=== PATIENT | female | born 2005 | race Caucasian/White ===

== ENCOUNTER 2024-06-02 13:05 | Inpatient (IN) | payer MEDICAID, SELFPAY ==
[2024-06-02 13:18] VITALS: RESP 16; BMI 24.0
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
--- NOTE | 2024-06-02 14:03 | PC.NURSE ---
Report given to Deirdre CESAR in Pod. Preparing to transfer from ED 16 [address] to Pod. Security notified.
[2024-06-02 14:15] VITALS: RESP 16
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
--- NOTE | 2024-06-02 14:26 | PC.NURSE ---
pt willingly provided urine and blood work, calm and cooperative
[2024-06-02 14:30] LABS: MANUAL DIFF FLAG NO
[2024-06-02 14:35] LABS: Basophils Absolute Auto 0.1 X10*3/uL (0.0-0.2); Basophils Percent Auto 0.4 % (0-2); Hematocrit 41.3 % (37.0-47.0); Hemoglobin 14.1 g/dl (12.0-16.0); Imm Gran Abs Auto 0.05 X10*3/uL (0.00-0.03); Imm Gran Pct Auto 0.4 % (0.0-0.4); Lymphocytes Absolute Auto 1.4 X10*3/uL (1.2-4.9); Lymphocytes Percent Auto 10.1 % (20-40); Mean Corpuscular HGB Conc 34.1 g/dl (31.0-35.0); Mean Corpuscular Hemoglobin 30.2 pg (27.0-33.0); Mean Corpuscular Volume 88.4 fL (80.0-98.0); Mean Platelet Volume 9.3 fL (9.4-12.3); Monocytes Absolute Auto 0.7 X10*3/uL (0.1-1.2); Monocytes Percent Auto 5.4 % (2-11); Neutrophils Absolute Auto 11.5 x10*3/uL (2.0-8.3); Neutrophils Percent Auto 83.7 % (45-73); Platelet Count 387 X10*3/uL (160-400); Red Blood Count 4.67 X10*6/uL (4.20-5.50); White Blood Count 13.8 X10*3/uL (4.8-10.8)
[2024-06-02 14:43] LABS: Appearance Urine Cloudy; Color Urine Yellow; Glucose Urine UA Negative (Negative); Leukocyte Esterase Urine Trace (Negative); Nitrite Urine Negative (Negative); Specific Gravity - Urine 1.025 (1.005-1.025); UMIC TRIGGER UACC YES; Urine Blood Negative (Negative); Urine Ketones 15 mg/dL (Negative); Urine Protein 30 (1+) mg/dL (Neg-Trace)
[2024-06-02 14:45] LABS: Amphetamine Screen Urine Not Detected (Not Detect); Barbiturates, Urine Not Detected (Not Detect); Benzodiazepines Screen Urine Not Detected (Not Detect); Buprenorphine Scr Not Detected (Not Detect); Cannabinoid Screen Urine POSITIVE (Not Detect); Cocaine Screen Urine Not Detected (Not Detect); Fentanyl, urine Not Detected (Not Detect); Methadone Screen, Urine Not Detected (Not Detect); Opiate Screen Urine Not Detected (Not Detect); Oxycodone Screen Urine Not Detected (Not Detect); Phencyclidine Screen Urine Not Detected (Not Detect)
[2024-06-02 14:59] LABS: Alanine Aminotransferase 16 U/L (0-31); Anion Gap 15 (12-20); Aspartate Amino Transferase 21 U/L (5-31); Bilirubin Total 0.6 mg/dL (0.0-1.0); Blood Urea Nitrogen 12 mg/dL (9-16); Carbon Dioxide 22 mmol/L (22-29); Chloride 107 mmol/L (96-108); Creatinine Clr Calc Pharmacy 95.6; Estimated Glomerular Filt Rate > 60; Ethanol < 10 mg/dL; Glucose Random 92 mg/dL (60-115); Potassium 3.9 mmol/L (3.3-5.1); Sodium 140 mmol/L (135-145); Total Protein 8.1 g/dL (6.5-8.0)
[2024-06-02 15:03] LABS: Bacteria Urine 2+ (None Seen); RBC Urine 0-2 /HPF (0-2); WBC Urine 0-5 /HPF (0-5)
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
[2024-06-02 15:08] LABS: Alkaline Phosphatase 83 U/L (39-117)
--- NOTE | 2024-06-02 15:20 | PC.NURSE ---
Pt requesting only female staff
[2024-06-02 15:35] LABS: UPreg QC Valid YES; Urine Pregnancy NEGATIVE (NEGATIVE)
[2024-06-02 15:41] LABS: Magnesium 2.1 mg/dL (1.6-2.6)
[2024-06-02] MEDS: Acetaminophen 325 MG TABLET 650 MG PO (15:54)
[2024-06-02] MEDS: LORazepam 1 MG TABLET PO (17:03)
--- NOTE | 2024-06-02 17:41 | PC.NURSE ---
pt sleeping, RR even and unlabored, no apparent distress noted
[2024-06-02 18:35] VITALS: PULSE 82; RESP 16; O2SAT 97
--- NOTE | 2024-06-03 | ECG_ITS ---
Test Reason : ro qc Blood Pressure : */* mmHG Vent. Rate : 98 BPM Atrial Rate : 98 BPM P-R Int : 126 ms QRS Dur : 74 ms QT Int : 342 ms P-R-T Axes : 55 11 51 degrees QTcB Int : 436 ms Normal sinus rhythm Possible Left atrial enlargement Borderline ECG No previous ECGs available Referred By: Jose Mena Electronically Signed By: Driss Escobar
[2024-06-03 06:31] VITALS: BP 117/62; PULSE 97; RESP 16; TEMP 36.6; O2SAT 99
--- NOTE | 2024-06-03 07:33 | PC.NURSE ---
ASSUMED CARE OF PT AT 0645. PT SHOWERING AT THIS TIME. NO ACUTE CONCERNS. CONTINUE PLAN OF CARE FOR [facility]
--- NOTE | 2024-06-03 13:23 | PC.NURSE ---
BELONGINGS GIVEN TO STAFF FOR ADMISSION M3
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
[2024-06-03 13:35] VITALS: BP 152/84; PULSE 96; RESP 16; TEMP 36.4; O2SAT 96
[2024-06-03] MEDS: risperiDONE 0.5 MG TABLET PO (15:41)
[2024-06-03] MEDS: hydrOXYzine HCL 25 MG TABLET PO (15:41)
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
[2024-06-03 20:00] VITALS: BP 122/66; PULSE 108; RESP 16; TEMP 36; O2SAT 98
[2024-06-03] MEDS: risperiDONE 1 MG TABLET PO (20:57)
[2024-06-03] MEDS: LORazepam 0.5 MG TABLET PO (20:57)
[2024-06-04 07:35] VITALS: BP 130/71; PULSE 112; RESP 16; TEMP 36.9; O2SAT 98
[2024-06-04 08:25] LABS: Estimated Average Glucose 103 mg/dL; Hemoglobin A1C 123.3929 umol/L; Hemoglobin A1c % 5.2 % (<6.0)
[2024-06-04 08:29] LABS: Alanine Aminotransferase 15 U/L (0-31); Albumin Level 4.6 g/dL (3.5-5.0); Alkaline Phosphatase 75 U/L (39-117); Anion Gap 12 (12-20); Aspartate Amino Transferase 21 U/L (5-31); Bilirubin Total 0.9 mg/dL (0.0-1.0); Blood Urea Nitrogen 11 mg/dL (9-16); Calcium 9.6 mg/dL (8.4-10.2); Carbon Dioxide 23 mmol/L (22-29); Chloride 107 mmol/L (96-108); Cholesterol 126 mg/dL (<200); Creatinine Clr Calc Pharmacy 87.2; Estimated Glomerular Filt Rate > 60; Glucose Random 97 mg/dL (60-115); HDL Cholesterol 50 mg/dL (>40); LDL Cholesterol Calculated 66 mg/dL (<100); Potassium 3.7 mmol/L (3.3-5.1); Sodium 138 mmol/L (135-145); Total Protein 7.4 g/dL (6.5-8.0); Triglycerides 54 mg/dL (<150)
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
[2024-06-04] MEDS: hydrOXYzine HCL 25 MG TABLET PO (16:42)
[2024-06-04] MEDS: risperiDONE 0.5 MG TABLET PO (16:42)
[2024-06-04 19:40] VITALS: BP 102/56; PULSE 80; RESP 16; TEMP 36.5; O2SAT 96
[2024-06-04] MEDS: risperiDONE 1 MG TABLET PO (20:42)
[2024-06-04] MEDS: LORazepam 0.5 MG TABLET PO (20:42)
[2024-06-05 07:39] VITALS: BP 123/63; PULSE 126; RESP 16; TEMP 36.9; O2SAT 96
[2024-06-05] MEDS: risperiDONE 0.5 MG TABLET PO ×2 (10:52→22:43)
[2024-06-05] MEDS: hydrOXYzine HCL 25 MG TABLET PO (10:52)
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
[2024-06-05 19:40] VITALS: BP 133/61; PULSE 111; RESP 14; TEMP 36.8; O2SAT 98
[2024-06-05] MEDS: risperiDONE 2 MG TABLET PO (22:43)
[2024-06-05] MEDS: LORazepam 0.5 MG TABLET PO (22:43)
[2024-06-06 07:15] VITALS: BP 116/62; PULSE 101; RESP 18; TEMP 37.1; O2SAT 97
[2024-06-06] MEDS: risperiDONE 0.5 MG TABLET PO (09:16)
[2024-06-06] MEDS: hydrOXYzine HCL 25 MG TABLET PO ×2 (09:16→20:28)
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
[2024-06-06 20:00] VITALS: BP 110/58; PULSE 93; RESP 16; TEMP 36.6; O2SAT 96
[2024-06-06] MEDS: traZODone HCL 50 MG TABLET PO ×2 (20:28→21:48)
[2024-06-06] MEDS: risperiDONE 2 MG TABLET PO (20:28)
[2024-06-06] MEDS: LORazepam 0.5 MG TABLET PO (20:28)
[2024-06-07 08:17] VITALS: BP 116/03; PULSE 93; RESP 14; TEMP 36.9; O2SAT 98
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
[2024-06-07 20:00] VITALS: BP 121/67; PULSE 98; RESP 16; TEMP 36.5; O2SAT 97
[2024-06-07] MEDS: hydrOXYzine HCL 25 MG TABLET PO (20:31)
[2024-06-07] MEDS: risperiDONE 2 MG TABLET PO (20:31)
[2024-06-07] MEDS: LORazepam 0.5 MG TABLET PO (20:33)
[2024-06-07] MEDS: traZODone HCL 50 MG TABLET PO ×2 (20:35→21:08)
[2024-06-08 08:46] VITALS: BP 104/50; PULSE 82; RESP 16; TEMP 36.6; O2SAT 97
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
[2024-06-08 19:45] VITALS: BP 113/59; PULSE 93; RESP 18; TEMP 36.9
[2024-06-08] MEDS: LORazepam 0.5 MG TABLET PO (20:05)
[2024-06-08] MEDS: traZODone HCL 100 MG TABLET PO (20:05)
[2024-06-08] MEDS: risperiDONE 3 MG TABLET PO (20:05)
[2024-06-09 07:40] VITALS: BP 111/56; PULSE 82; RESP 14; TEMP 36.9; O2SAT 97
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
[2024-06-09] MEDS: Acetaminophen 325 MG TABLET 650 MG PO (15:35)
[2024-06-09] MEDS: Ibuprofen 600 MG TABLET PO (18:49)
[2024-06-09 20:03] VITALS: BP 125/67; PULSE 116; RESP 16; TEMP 36.8; O2SAT 98
[2024-06-09] MEDS: risperiDONE 3 MG TABLET PO (20:37)
[2024-06-09] MEDS: LORazepam 0.5 MG TABLET PO (20:37)
[2024-06-09] MEDS: traZODone HCL 100 MG TABLET PO (20:37)
[2024-06-10 07:05] VITALS: BP 110/61; PULSE 99; RESP 16; TEMP 36.6; O2SAT 97
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
[2024-06-10] MEDS: hydrOXYzine HCL 25 MG TABLET PO (17:26)
[2024-06-10] MEDS: risperiDONE 0.5 MG TABLET PO (17:27)
[2024-06-10] MEDS: Ibuprofen 600 MG TABLET PO (18:35)
[2024-06-10 20:00] VITALS: BP 149/74; PULSE 104; RESP 18; TEMP 36.6; O2SAT 97
[2024-06-10] MEDS: risperiDONE 2 MG TABLET 4 MG PO (20:26)
[2024-06-10] MEDS: LORazepam 0.5 MG TABLET PO (20:27)
[2024-06-10] MEDS: traZODone HCL 100 MG TABLET PO (20:27)
[2024-06-10] MEDS: Magnesium Hydrox/Alum Hydrox 30 ML ORAL.SUSP PO (20:32)
[2024-06-11 07:44] VITALS: BP 93/48; PULSE 85; RESP 14; TEMP 36.9; O2SAT 96
[2024-06-11] MEDS: risperiDONE 0.5 MG TABLET PO ×2 (08:40→12:50)
[2024-06-11] MEDS: Ibuprofen 600 MG TABLET PO (08:40)
[2024-06-11] MEDS: hydrOXYzine HCL 25 MG TABLET PO ×3 (08:40→21:23)
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
[2024-06-11] MEDS: LORazepam 1 MG TABLET PO (13:59)
[2024-06-11 20:00] VITALS: BP 116/60; PULSE 90; RESP 16; TEMP 37.1; O2SAT 96
[2024-06-11] MEDS: risperiDONE 2 MG TABLET 4 MG PO (21:22)
[2024-06-11] MEDS: LORazepam 0.5 MG TABLET PO (21:22)
[2024-06-11] MEDS: traZODone HCL 100 MG TABLET PO (21:22)
[2024-06-12 07:00] VITALS: BMI 21.2
[2024-06-12 07:43] VITALS: BP 86/48; PULSE 76; RESP 16; TEMP 36.9; O2SAT 97
[2024-06-12] MEDS: LORazepam 0.5 MG TABLET PO ×2 (08:07→21:39)
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
[2024-06-12 10:07] VITALS: BMI 21.2
[2024-06-12] MEDS: OLANZapine 5 MG TABLET PO ×3 (10:10→21:39)
[2024-06-12] MEDS: hydrOXYzine HCL 25 MG TABLET PO (16:47)
[2024-06-12] MEDS: traZODone HCL 100 MG TABLET PO (21:39)
[2024-06-12] MEDS: risperiDONE 3 MG TABLET PO (21:39)
[2024-06-13 07:45] VITALS: BP 104/62; PULSE 87; RESP 16; TEMP 36.8; O2SAT 96
[2024-06-13] MEDS: OLANZapine 5 MG TABLET PO ×3 (08:23→20:24)
[2024-06-13] MEDS: LORazepam 0.5 MG TABLET PO ×2 (08:23→20:24)
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
--- NOTE | 2024-06-13 14:16 | PC.NURSE ---
Bindu requested medication for psychosis, stating that she was hearing narration and argueing in her head and that she was feeling agitated. Provider notified, prn zyprexa administered
[2024-06-13 19:31] VITALS: BP 92/52; PULSE 68; RESP 14; TEMP 36.5; O2SAT 96
[2024-06-13] MEDS: traZODone HCL 100 MG TABLET PO (20:24)
[2024-06-14] MEDS: Ibuprofen 600 MG TABLET PO ×2 (07:05→15:12)
[2024-06-14 08:00] VITALS: BP 133/62; PULSE 98; RESP 14; TEMP 36.8; O2SAT 98
[2024-06-14] MEDS: LORazepam 0.5 MG TABLET PO ×2 (08:53→21:43)
[2024-06-14] MEDS: OLANZapine 5 MG TABLET PO ×3 (08:53→21:42)
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
[2024-06-14] MEDS: chlorproMAZINE HCl 25 MG TABLET 50 MG PO (16:58)
[2024-06-14 20:20] VITALS: BP 102/55; PULSE 92; RESP 16; TEMP 36.4; O2SAT 93
[2024-06-14] MEDS: traZODone HCL 100 MG TABLET PO (21:43)
[2024-06-15] MEDS: hydrOXYzine HCL 25 MG TABLET PO ×2 (05:43→13:08)
[2024-06-15] MEDS: chlorproMAZINE HCl 25 MG TABLET PO ×5 (05:43→21:31)
[2024-06-15 08:00] VITALS: BP 104/54; PULSE 85; RESP 16; TEMP 36.8; O2SAT 96
[2024-06-15] MEDS: OLANZapine 5 MG TABLET PO ×2 (08:20→21:32)
[2024-06-15] MEDS: LORazepam 0.5 MG TABLET PO ×2 (08:21→21:32)
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
[2024-06-15 20:00] VITALS: BP 100/52; PULSE 83; RESP 16; TEMP 36.6; O2SAT 97
[2024-06-15] MEDS: traZODone HCL 100 MG TABLET PO (21:32)
[2024-06-15] MEDS: Ibuprofen 600 MG TABLET PO (21:34)
[2024-06-16] MEDS: chlorproMAZINE HCl 25 MG TABLET PO ×4 (05:58→20:09)
[2024-06-16 07:10] VITALS: BP 98/54; PULSE 79; RESP 14; TEMP 36.6; O2SAT 98
[2024-06-16] MEDS: OLANZapine 5 MG TABLET PO ×2 (09:08→20:09)
[2024-06-16] MEDS: LORazepam 0.5 MG TABLET PO ×2 (09:08→20:09)
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
[2024-06-16] MEDS: hydrOXYzine HCL 25 MG TABLET PO (18:37)
[2024-06-16 20:00] VITALS: BP 119/56; PULSE 83; RESP 18; TEMP 36.4; O2SAT 96
[2024-06-16] MEDS: traZODone HCL 100 MG TABLET PO (20:08)
[2024-06-17] MEDS: chlorproMAZINE HCl 25 MG TABLET PO ×2 (03:06→07:06)
[2024-06-17 07:15] VITALS: BP 113/56; PULSE 103; RESP 16; TEMP 36.4; O2SAT 98
[2024-06-17] MEDS: LORazepam 0.5 MG TABLET PO (08:39)
[2024-06-17] MEDS: OLANZapine 5 MG TABLET PO (08:39)
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
== END 2024-06-17 09:50 | disposition home or self-care (01) | DRG 751 ==
LOC: HO.ED 06-03 07:35 → HO.PADLT16 06-03 12:11
PROVIDERS: Physician Assistant; Admitting Provider Registered Nurse; Emergency Provider Emergency Medicine Emergency Medical Services; Responsible Provider Registered Nurse; Visit Provider Psychiatry & Neurology Psychiatry
DX: F32.3 Major depressive disorder, single episode, severe with psychotic features (principal); F43.10 Post-traumatic stress disorder, unspecified; Z59.02 Unsheltered homelessness; Z87.891 Personal history of nicotine dependence
CPT/HCPCS: 36415; 80053; 80061; 80307; 81001; 81025; 83036; 83735; 85025; 93005; 99285; S9485

== ENCOUNTER → 2024-06-03 07:51 | Outpatient (BNV) | payer MEDICAID, SELFPAY | PROVIDERS: Admitting Provider Registered Nurse; Emergency Provider Emergency Medicine Emergency Medical Services; Responsible Provider Registered Nurse; Visit Provider Internal Medicine Cardiovascular Disease | DX: Z13.6 Encounter for screening for cardiovascular disorders (principal) | CPT/HCPCS: 93010 ==

== ENCOUNTER → 2024-06-03 11:51 | Outpatient (BNV) | payer OTHER, SELFPAY | PROVIDERS: Admitting Provider Registered Nurse; Emergency Provider Emergency Medicine Emergency Medical Services; Responsible Provider Registered Nurse; Visit Provider Registered Nurse | DX: F23 Brief psychotic disorder (principal); F43.11 Post-traumatic stress disorder, acute | CPT/HCPCS: 99231; 99232; 99233 ==